=== PATIENT | male | born 1980 | race Hispanic/Latino ===

== ENCOUNTER 2025-06-26 06:58 | Emergency (ER) | payer SELFPAY ==
[~2025-06-26] VITALS: Ht 165.1 cm; Wt 104.3 kg
[2025-06-26 07:00] VITALS: BP 153/73; PULSE 73; RESP 20; TEMP 98
--- NOTE | 2025-06-26 08:05 | HMCIMG ---
EXAM: CR right Hip, 2 View. CLINICAL HISTORY: pain COMPARISON: None provided. FINDINGS: BONES: No acute fracture or aggressive appearing osseous lesion. JOINTS: No dislocation. The joint spaces are normal. SOFT TISSUES: The soft tissues are unremarkable. IMPRESSION: No acute osseous abnormality. /Bonita
[2025-06-26] MEDS ORDERED: CYCL10TA16 PO (09:25)
--- NOTE | 2025-06-26 09:25 | ERN ---
ED Note History of Present Illness Stated Complaint: RT LEG PAIN Chief Complaint: Lower Extremity Pain/Injury Time Seen by MD: 07:17 Dictation: 45-year-old male with right hip pain radiating to his right lower extremity worse with movement and touch no injury however worse with work type activities. No urinary retention no recent surgeries no fevers. Allergies: Coded Allergies: No Known Allergies (Unverified Allergy, Unknown, 06/26/25) Past Medical History Past Medical History: No Pertinent History Surgical History: None Review of System Dictation Constitutional: Negative for fever,chills, and weight loss Eyes: Negative for injury, pain,redness, and discharge ENT: Negative for injury,pain or swelling Cardiovascular: Negative for chest pain, palpitations, and edema Respiratory: Negative for shortness of breath, cough, and wheezing, Abdomen/GI: Negative for abdominal pain, nausea, vomiting, diarrhea, and const ipation Back: Negative for injury and pain : Negative for injury, bleeding and discharge MS/Extremity: Per HPI Skin: Negative for rash, and discoloration Neuro: Negative for headache, weakness, numbness, tingling, and seizure Psych: Negative for suicide ideation, homicidal ideation, and hallucinations Initial Vital Sign VS Vital Signs Date Time Temp Pulse Resp B/P (MAP) Pulse Ox O2 Delivery O2 Flow Rate FiO2 06/26/25 07:00 98.1 73 20 153/73 100 Room Air Physical Exam Dictation General: awake, alert, NAD Head/Face: Normocephalic, atraumatic Eyes: PERRL, EOMI, vision at baseline ENT: oral cavity clear, TMs clear, no signs of infection Neck: Trachea midline, supple, no nuchal rigidity Cardiovascular: RRR, normal S1/S2, No MRGs, no JVD Respiratory: CTAB, no respiratory distress, No rales or wheezes Abdomen: Soft, non-tender, non-distended, normal bowel sounds, no guarding or rebound. Skin: Warm, dry, normal turgor, no rash MS/Extremity: Pulses equal, no cyanosis, neurovascular intact, FROM, positive straight leg raise Neuro: COAx4, GCS 15, strength 5/5, CN 2-12 intact, normal cerebellar exam, normal gait, Psych: Normal behavior, mood, and affect normal ED Course ED Course Orders Procedure Category Date Status Time Hip Unilat 2-3vw Right RAD 06/26/25 Resulted 07:32 Diazepam 5 Mg/Ml 2 Ml PHA 06/26/25 Complete Syg (Valium 5 Mg/M 08:00 Ketorolac PHA 06/26/25 Complete Tromethamine 30mg/Ml 08:00 Current Medications Medications (Trade) Dose Ordered Sig/Oren Route PRN Reason Start Time Stop Time Status Last Admin Dose Admin Diazepam (VALium 5 MG/ML 2 ML SYG) 5 mg ONCE ONCE IM 06/26/25 08:00 06/26/25 08:01 DC 06/26/25 08:01 Ketorolac Tromethamine (toRADol) 30 mg ONCE ONCE IM 06/26/25 08:00 06/26/25 08:01 DC 06/26/25 08:00 Vital Signs Date Time Temp Pulse Resp B/P (MAP) Pulse Ox O2 Delivery O2 Flow Rate FiO2 06/26/25 07:00 98.1 73 20 153/73 100 Room Air Medical Decision Making MDM MDM: Differential diagnosis: Rationale: Tests considered and ordered secondary to shared decision making include: Previous outside records reviewed: Old ER visits. Risk of complication and/or morbidity or mortality of patient management: None Medications-Per medication reconciliation Need for hospitalization: Patient does not meet criteria for hospitalization. Need for emergency major/minor surgery: No There are no social concerns with this patient. Prescription drug management Prescriptions will include symptomatic care Patient's prior external medical records from other ER visits were reviewed by me as indicated. Prior testing and results from previous visits were reviewed. Prior tests were taken into account with medical decision making and resource utilization, independent historian/historians were used to obtain complete medical history. I independently interpreted the test that were performed, results were reviewed by me and considered findings on radiology if ordered. Medical management and examination interpretation discussions were had by me with other qualified healthcare professionals as indicated for the patient's care. 45-year-old male with sciatica right side stable exam neurovascularly intact distally good cap refill no signs of clots or DVT stable for discharge after x- ray and medications symptoms improved prescriptions given. DX & DISP Disposition: Discharge Departure Impression: Primary Impression: Lumbago with sciatica, right side Condition: Stable Scripts Cyclobenzaprine HCl (Flexeril) 10 Mg Tab 1 TAB PO HS for muscle spasms for 10 Days, #10 TAB 0 Refills Prov: GRACIELA AMATO MD 06/26/25 Referrals: SELF,REFERRAL (PCP) GRACIELA AMATO MD Jun 26, 2025 09:25
== END 2025-06-26 09:38 | disposition home or self-care (01) ==
LOC: EDH 06:58
DX: M54.41 Lumbago with sciatica, right side (principal)
CPT/HCPCS: 99284; 73502; 96372 ×2; J1885; J3360